=== PATIENT | male | born 1935 | race Caucasian/White ===

== ENCOUNTER → 2018-01-24 | Outpatient (CLI) | payer MEDICARE, OTHER ==
[~2018-01-24] MED LIST: ALBUTEROL2.5 MG/0.5 INH; ASPIRIN325 PO; CARDIZEM CD240 MG PO; CEFDINIR PO; CRESTOR20 MG PO; DEPO-TESTO100 MG/1 M IM; DOXYCYCLINE 10100 M1 PO; DUONEB 2.5-0.5 M3 ML INH; HYDROCHLOROTHIA25 M2 PO; IRON325 PO; K-DUR 20 MEQ T20 MEQ PO; LASIX 20 MG TAB20 MG PO; LASIX 40 MG TAB40 M2 PO; LEVAQUIN 500 M500 M2 PO; LOPRESSOR50 PO; POTASSIUM PO; PREDNISONE 10 M10 MG PO; PRINIVIL20 MG PO; SIMVASTATIN20 MG PO; SINGULAIR 10 MG10 M1 PO; SYMBICORT160 MCG/4. INH; TAMIFLU75 MG PO; VITAMIN B-12500 MCG PO; VITAMIN D3400 UNIT PO; ZOCOR40 MG PO; vitamin d3
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
== END | disposition home or self-care (01) ==
LOC: M.PC 05:15
DX: M54.16 Radiculopathy, lumbar region (principal); G89.29 Other chronic pain; I13.0 Hypertensive heart and chronic kidney disease with heart failure and stage 1 through stage 4 chronic kidney disease, or unspecified chronic kidney disease; I50.32 Chronic diastolic (congestive) heart failure; N18.9 Chronic kidney disease, unspecified; I25.10 Atherosclerotic heart disease of native coronary artery without angina pectoris; J44.9 Chronic obstructive pulmonary disease, unspecified; E78.5 Hyperlipidemia, unspecified; I48.91 Unspecified atrial fibrillation; Z79.01 Long term (current) use of anticoagulants; Z87.440 Personal history of urinary (tract) infections; Z95.5 Presence of coronary angioplasty implant and graft; Z88.8 Allergy status to other drugs, medicaments and biological substances; Z79.899 Other long term (current) drug therapy; Z98.890 Other specified postprocedural states; Z96.651 Presence of right artificial knee joint; Z79.82 Long term (current) use of aspirin

== ENCOUNTER → 2018-04-25 | Outpatient (CLI) | payer MEDICARE, OTHER ==
--- NOTE | 2018-05-10 16:28 | PAINCON ---
[address] [address] PAIN MANAGEMENT CONSULTATION Name: MIGUEL ARROYO Room: [facility] RACHANA BradyDejon#: [id number] Admission: 04/25/18 Attend Phys: Ayaz Godinez MD Discharge: Date of : 34 Report #: [id number] THIS REPORT FOR: //name// CC: DO Stephanie Santoro RNP N. Brown DATE OF SERVICE: 04/25/2018 PRIMARY CARE PHYSICIAN: TIM Mckeon CHIEF COMPLAINT: Pain in the low back, which is worse when I am getting up. HISTORY: The patient is an 83-year-old gentleman who has been seen in the pain clinic because of lumbar radiculopathy. He has undergone an epidural steroid injection in the past. He has gleaned benefits from these. He returns today indicating that his pain is more problematic. He is experiencing pain when walking, standing and with activities of daily living. Does feel somewhat lightheaded and weak. He attributes this to his atrial fibrillation. States that they are weaning him off some of his medications. Notes that he is limited in his ability to engage in activities of daily living because of this. He rates his pain as a 7-8. Sometimes finds Tylenol helpful. He has returned today for an injection with the hope of improving the pain and discomfort, which he is experiencing in his back, particularly when he is standing up, walking and engaging in activities of daily living. ALLERGIES: THEOPHYLLINE, LEVAQUIN. CURRENT MEDICATIONS: Aspirin 325 mg 1 tablet daily, Lasix 40 mg daily, Prinivil 5 mg daily, prednisone 10 mg, potassium 99, metoprolol 50 mg 1/2 tablet b.i.d. PAIN CLINIC ASSESSMENT/PQRS: 1. History of osteoarthritis, has some osteoarthritic change in his low back. The patient is not being treated for rheumatoid arthritis. 2. Height 6 feet 3 inches, weight 235. BMI is 29.9. 3. Vital signs: Blood pressure 154/95, heart rate 92, respiratory rate 16, room air saturation 94%, temperature 98. 4. Pain score 7/10. 5. Fall history: The patient has not fallen in the last 3 months. Does have some feelings of lightheadedness. 6. Blood thinner. The patient is not on a blood thinning medication. He elects not to even though he does have atrial fibrillation. He states that he does not want to have a bleed, it would rather have a stroke. 7. Hypertension. The patient is being treated for hypertension. 8. Opioid therapy greater than 6 weeks. The [place] [address] PAIN MANAGEMENT CONSULTATION Name: MIGUEL ARROYO [facility] [id number] Admission: 04/25/18 Attend Phys: Ayaz Godinez MD Discharge: Date of : 34 Report #: [id number] therapy regimen. 9. Risk assessment tool. 10. Functional assessment tool. 11. Recreational drug use. The patient denies use of recreational drugs. 12. Tobacco: The patient denies use of tobacco, but does chew tobacco. 13. Alcohol: The patient denies use of alcoholic beverages. PHYSICAL EXAMINATION: GENERAL: The patient is a well-developed, well-nourished white male. Appears his stated age. He is alert and oriented x 3. He is still somewhat depressed because he feels tired, but then is unable to get much accomplish. HEENT: Normocephalic, atraumatic. Extraocular eye muscles intact. Sclerae nonicteric. Mucous membranes are moist. Hearing is within normal limits. NECK: Without JVD. HEART: Chronic atrial fibrillation with a regular heart rate. LUNGS: Clear to auscultation. ABDOMEN: Nontender. EXTREMITIES: Lower extremity. The patient has some discomfort in the lower portion of his back with pain radiates down into his leg in the right side greater than left. Does have some weakness in his lower extremities. Does wear compression stockings. He does have some edema in the lower extremities. IMPRESSION: 1. Lumbar radiculopathy involving, does improved in the past with epidural steroid injections. 2. Coronary artery disease with a LAD stent. 3. Chronic obstructive pulmonary disease. 4. Asthma. 5. Chronic diastolic heart failure. 6. Hypertension. 7. Hyperlipidemia. 8. Atrial fibrillation. 9. Chronic kidney disease, elevated. 10. Elevated bilirubin, undetermined etiology. 11. History of urinary tract infection with cystitis and hematuria. RECOMMENDATIONS: We discussed treatment options with the patient. At this juncture, he feels that another epidural steroid injection would be beneficial. He has undergone them in the past. He did note some greater than 50% improvement. He still feels that the pain is problematic and would like to proceed with another injection to help curtail the amount of discomfort he is experiencing when he is standing. Risks and benefits of the procedure were discussed. They include but are not limited to infection, increased muscle soreness, headache, bleeding, worsening of pain, no improvement in pain, paralysis. The [place] [address] PAIN MANAGEMENT CONSULTATION Name: MIGUEL ARROYO Room: [facility]#: [id number] Admission: 04/25/18 Attend Phys: Ayaz Godinez MD Discharge: Date of : 34 Report #: [id number] PROCEDURE NOTE: The patient was placed in the prone position. Fluoroscopy was used to identify the L5/L4 interspace. This area on the right-side had been sterilely prepped and infiltrated with 0.25% bupivacaine. A pillow had been placed under the abdomen to bolster improve positioning. A 17-gauge Tuohy with loss of resistance technique was used to gain access to the epidural space. There was no CSF, heme or paresthesia. A total of 80 mg Depo-Medrol, 40 mg triamcinolone and 2 mL of 0.25% bupivacaine was injected. The patient tolerated the procedure well. There were no complications. A total of 7 seconds fluoroscopy time was used. The patient's pain was 0 at the time of discharge. He will follow up in the future as needed. States that he is going to be following up with a bundle tier in the near future. It sounds like he appears to be going to see an dopster. Hopefully he continues to improve. <ELECTRONICALLY SIGNED> By: Ayaz Godinez MD 05/10/18 1628 [id number] [id number]. Julian Godinez MD /PMT
== END | disposition home or self-care (01) ==
LOC: M.PC 05:05
DX: M54.16 Radiculopathy, lumbar region (principal); G89.29 Other chronic pain; I13.0 Hypertensive heart and chronic kidney disease with heart failure and stage 1 through stage 4 chronic kidney disease, or unspecified chronic kidney disease; N18.6 End stage renal disease; E78.5 Hyperlipidemia, unspecified; I50.32 Chronic diastolic (congestive) heart failure; I48.91 Unspecified atrial fibrillation; I25.10 Atherosclerotic heart disease of native coronary artery without angina pectoris; J44.9 Chronic obstructive pulmonary disease, unspecified; Z87.440 Personal history of urinary (tract) infections; Z79.01 Long term (current) use of anticoagulants; Z79.899 Other long term (current) drug therapy; Z98.890 Other specified postprocedural states; Z88.8 Allergy status to other drugs, medicaments and biological substances; Z79.82 Long term (current) use of aspirin